=== PATIENT | female | born 1990 | race Caucasian/White ===

== ENCOUNTER 2022-12-07 14:00 | Outpatient (REF) | payer OTHER, SELFPAY ==
[2022-12-07 15:22] LABS: Alanine Aminotransferase 32 U/L (0-31); Albumin Level 4.5 g/dL (3.5-5.0); Alkaline Phosphatase 65 U/L (39-117); Anion Gap 11 (12-20); Aspartate Amino Transferase 24 U/L (5-31); Bilirubin Total 0.2 mg/dL (0.0-1.0); Blood Urea Nitrogen 10 mg/dL (9-16); Calcium 9.2 mg/dL (8.4-10.2); Carbon Dioxide 26 mmol/L (22-29); Chloride 107 mmol/L (96-108); Estimated Glomerular Filt Rate > 60; Free T4 (Free Thyroxine) 0.87 ng/dL (0.71-1.85); Glucose Random 84 mg/dL (60-115); Potassium 4.1 mmol/L (3.3-5.1); Sodium 140 mmol/L (135-145); Thyroid Stimulating Hormone 0.89 uIU/mL (0.32-4.0); Total Protein 7.8 g/dL (6.5-8.0); Vitamin D 25-OH Total 27.2 ng/mL (>30)
== END 2022-12-07 14:01 | disposition home or self-care (01) ==
LOC: HO.LAB 14:00
PROVIDERS: PCP Nurse Practitioner Family; Visit Provider Nurse Practitioner Psychiatric/Mental Health
DX: F53.0 Postpartum depression (principal)
CPT/HCPCS: 36415; 80053; 82306; 84439; 84443

== ENCOUNTER 2022-12-22 08:45 | Outpatient (RCR) | payer OTHER, SELFPAY ==
[2022-12-06 11:43] VITALS: TEMP 36.9
--- NOTE | 2022-12-06 11:46 | HO.PS.ADMBH ---
HPI Date of Service: 12/06/22 Chief Complaint: depression, Sources of Information: patient interviewed, chart reviewed and crisis/core team assessment reviewed HPI Medical Problems Affecting Mental Status: No Narrative: Ms. Mcmahon is a 32 yo female, referred to [facility] by [facility] crisis, due to increased symptoms of depression, with passive SI. That she was in crisis last Sunday, and contacted [facility]. Their recommendation was a partial program. Patient has 4 children, youngest 1-1/2 years old. Oldest daughter is a step daughter. She explains that after the each child, she had ?some baby blues at 1st?, but after each it progressed in severity. States she has been experiencing depression since of last child 1 and half years ago. States symptoms of gotten worse past several months. Believes a precipitant is the of her grandmother about a month ago. Describes current symptoms as the inability to get out of bed, poor attention to ADLs/IADLs, missing work, feeling hopeless and helpless, anhedonia, poor sleep, decreased energy, decreased motivation, decreased appetite, passive SI with no plan or intent. States ?sometimes I think my family would be better off without me ?. She has never acted on any plan to harm herself or others, and reports that she feels safe. She has a supportive , family, and support network. She reports she has experienced anxiety for years, since she was a child. She began therapy in 2016 after the of 1 of her children. She was placed on medication a couple years ago, started sertraline. , reports that it made her feel numb, suicidal, and stopped taking it. During this most recent episode she was started with escitalopram 10 mg, prescribed by her primary care provider. About 1 1/2 months ago the dose was increased to 20 mg. She reports that she does not feel any difference, continues with depressed mood, anxiety. Patient it is father has bipolar 1 disorder, and has had manic episodes. Patient reports that her paternal grandmother may have also had bipolar, untreated. She states she has never experienced a full manic episode, however at times she has had some symptoms of feeling energetic, hyperfocused, like cleaning her house intensively, having more energy for several days, followed by a period of depression. Reports this has never really been a problem, and she has never been diagnosed with bipolar. She reports that currently she feels her depression is her main concern, but she also feels she has an underlying anxiety, since she was young, that is not being treated. She states that she feels ?sad all the time, worthless ?. She has recently taken time off from work, due to increased depression. She had already taken of less demanding position due to symptoms in the past. She has also taken time off to participate in this program. She is interested in medication evaluation, suggestions. Past Psychiatric History: Therapy off and on since 2016. Med trials: Sertraline (numbing, SI). No IP, no PHP No psychiatry provider Therapist Cindy Delvalle [facility] (new) Medical Evaluation Reviewed: Yes [facility] Medical History (Updated 12/07/22 @ 18:57 by Kay Valverde) delivery delivered History of anemia History of kidney stones Family History: Father: Bipolar disorder Paternal grandmother: Suspect bipolar disorder, untreated. Maternal side of family: Anxiety. Patient's son recently diagnosed with anxiety. Social History: Morning raised by both parents, they when she was in high school. No siblings. 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 , 18-year-old stepdaughter, 3 biological children ages 7, 4 and 1-1/2. She is in couples therapy with her at this time. Currently on leave from work. Substance History: none Trauma History: none reported Meds/Allergies Meds Home Medications Medication Instructions Recorded Confirmed Type escitalopram oxalate 20 mg tablet 20 mg PO DAILY 12/06/22 12/06/22 History melatonin 3 mg tablet 6 mg PO BEDTIME 12/06/22 12/06/22 History Allergies Allergies Allergy/AdvReac Type Severity Reaction Status Date / Time sulfamethoxazole Allergy Hives Verified 10/24/22 14:48 [From Bactrim] trimethoprim [From Bactrim] Allergy Hives Verified 10/24/22 14:48 Mental Status Exam Mental Status Exam Narrative: Well-developed, well-nourished female, in NAD. Normal ambulation. Appropriately dressed. Fully attentive during interview. Patient Appearance: Well Grooomed and Appropriate Patient Orientation: Person, Place, Time and Situation Level of Consciousness: Appropriate and Alert Patient Behavior: Appropriate, Cooperative and Good Eye Contact Mood Description: Depressed and Anxious Affect Description: Depressed and Anxious Patient Cognition Impaired: No Ability to Follow Directions: Excellent Speech Pattern: Clear and Appropriate Memory Description: Intact Hallucinations: None Delusions: Not Present Thought Process: Intact Thought Content: positive for Intact and positive for Suicidal Ideation (passive, no intent/plan) Depressive Symptoms: Increased Anxiety, Difficulty Sleeping, Changes in Appetite, Crying Spells, Loss of Int. in Activity, Feelings of Worthlessness, Hopelessness, Increased Fatigue, Thoughts of /Suicide (thoughts that family would be better off without her) and Loss of Energy Judgement: Fair Assessment & Plan Assessment & Plan (1) depression: Status: Acute Code(s): F53.0 - depression Assessment and Plan: Patient describes long history of anxiety since childhood, periods of depression after of children. Began treatment 6 years ago. Has been prescribed SSRIs, with little effect regarding management of symptoms. In therapy currently. Struggling with increased depression symptoms including feeling hopeless and helpless, anhedonia, poor sleep, decreased energy, poor attention to ADLs/IADLs, difficulty getting out of bed and, passive SI. She describes her SI as passive, with no intent or plan to harm herself or others in any way. She states that she does feel safe. Denies any episodes of landen or hypomania in her past, although there is a family history of bipolar disorder. She has had several past instances of having increased energy, goal-directed activity for several days at a time. Mood disorder questionnaire (MDQ) administered. Patient answered yes to 7 questions in Part 1, yes to part 2. However, in part 3 she described as a minor problem rather than a moderate or serious concern. This will warrant further assessment during subsequent encounters while she is in program. We did discuss differences between bipolar 1 and bipolar 2 disorder. Also discussed various mood stabilizers. Patient feels at this time that her issue is mostly depression, with an underlying anxiety. She states the Lexapro is ineffective in treating her symptoms. Would like to trial another medication. We discussed her response with several SSRIs, and suggestion of trialing an SN RI at this time. Duloxetine being was discussed in detail, including risks and benefits, side effects both small and more serious, not indications of use. Discussed of taper down with Lexapro, wall initiating titration duloxetine in over the next week. She was in agreement with this. (2) Generalized anxiety disorder: Status: Acute Code(s): F41.1 - Generalized anxiety disorder Assessment and Plan: DAVID-7 anxiety screening tool administered. Patient had score of 14, which indicates moderate anxiety. Patient is hoping to gain coping skills in [facility] to be able to cope with episodes of anxiety. Plan 1. Continue with current [facility] plan of care. 2. Take escitalopram 10 mg x 5 days, then escitalopram 5 mg x 5 days, then discontinue. 3. Start duloxetine 20 mg daily. 4. Follow-up as per protocol. 5. Labs ordered. Patient educated on: diagnosis, medication risk/benefits and therapeutic strategies Informed Consent: understands Reason for continued partial hosp. stay Substantial Risk for: harm to self, inability to function and rapid decompensation Certification I certify that partial hospital treatment is medically necessary due to the symptoms and problems resulting from the patient's mental illness and the failure to treat the patient at the partial hospital level of care would likely result in the patient requiring inpatient psychiatric care which could not be prevented at a less intensive level of care. Time Spent With Patient Time: Total time managing care of this patient today __60__ minutes.
--- NOTE | 2022-12-06 12:20 | PC.ADMIT ---
Patient is a 32 year old female who was referred to [facility] by crisis d/t increased depression sxs with passive SI (denied plan or intent). Patient reports sxs of post depression after her other 2 children were born however after her last child was born 1.5 years ago she reports increased feelings of depression. She stated it started over this last summer and increased a few weeks ago to the point where she could not get out of bed and was unable to go into work. She is currently taking a leave of absence from work to work on her mental health. See Integrative Assessment for more information. Patient is alert and oriented x4. calm and cooperative. Presented with depressed mood and affect. Reports passive SI, denied plan or intent. Reviewed patient's safely plan with her and gave her a copy of it if needed. Medications reconciled with patient and patient's pharmacy.
--- NOTE | 2022-12-08 08:44 | HO.PHP ---
The clients case was reviewed and opened in treatment team
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
--- NOTE | 2022-12-13 09:57 | P.PNPSP_ITS ---
Subjective Subjective Date of Service: 12/13/22 Reason For Visit: depression, Medical Problems Affecting Mental Status: No Interim History: Continues with depressed mood/affect. Tearful. States yesterday was a bad day , difficult to get out of bed and attend to ADL's, IADL's. Some passive SI, no intent or plan to harm self or others in any way. Feels safe. Asking for medication dose increase. Medication Compliance: Yes Side effects from medications: No Attending Groups: Yes Review of Systems Acute medical concerns: No Medical Review of Systems: unchanged Review of Systems Review of Systems Yes all other systems are reviewed and are negative Constitutional: Reports no additional constitutional complaints Mental Status Exam Mental Status Exam Narrative: NAD. Tearful. Passive SI. No HI, no AH,VH. Denies any intrusive thoughts. No perceptual disturbances noted. Patient Appearance: Appropriate Patient Orientation: Person, Place, Time and Situation Level of Consciousness: Appropriate and Alert Patient Behavior: Appropriate, Cooperative and Good Eye Contact Mood Description: Depressed Affect Description: Depressed and Anxious Patient Cognition Impaired: No Ability to Follow Directions: Excellent Speech Pattern: Clear and Appropriate Memory Description: Intact Hallucinations: None Delusions: Not Present Thought Process: Intact Thought Content: positive for Intact and positive for Suicidal Ideation (passive, no intent/plan) Depressive Symptoms: Increased Anxiety, Difficulty Sleeping, Changes in Appetite, Crying Spells, Loss of Int. in Activity, Feelings of Worthlessness, Hopelessness, Increased Fatigue, Thoughts of /Suicide (thoughts that family would be better off without her) and Loss of Energy Judgement: Fair Assessment & Plan Assessment & Plan (1) depression: Status: Acute Code(s): F53.0 - depression Assessment and Plan: Continues with depressed mood/affect. Tearful. States she does not feel any better. Continues taper down off lexapro. Discussed increasing duloxetine dose. States yesterday was a bad day , difficult to get out of bed and attend to ADL's, IADL's. Some passive SI, no intent or plan to harm self or others in any way. Feels safe. Discussed adding lamotrigine. Medication reviewed, including indications as a mood stabilizer (sig family history bipolar), as well as adjunctive for depression, side effects both small and more serious, alternatives to treatment. she is willing to try med at this time. (2) Generalized anxiety disorder: Status: Acute Code(s): F41.1 - Generalized anxiety disorder Plan 1. Continue with current [facility] plan of care. 2. Increase duloxetine to 40mg daily. 3. Continue taper off escitalopram, currently taking 5mg daily for several more days. 4. Start lamotrigine 25mg X 14 days, then take lamotrigine 50mg daily X 14 days. 5. Follow-up as per protocol. Patient educated on: diagnosis, medication risk/benefits and therapeutic strategies Informed Consent: understands Reason for contiued partial hosp. stay Substantial Risk for: harm to self, inability to function and rapid decompensation Certification I certify that partial hospital treatment is medically necessary due to the symptoms and problems resulting from the patient's mental illness and the failure to treat the patient at the partial hospital level of care would likely result in the patient requiring inpatient psychiatric care which could not be prevented at a less intensive level of care. Total time managing care of this patient today __20__ minutes. Discharge Plan Discharge Attending provider: Mack Loaiza Medications: New escitalopram oxalate 5 mg tablet 5 mg PO DAILY Qty: 5 0RF duloxetine 40 mg capsule,delayed release(DR/EC) 40 mg PO DAILY Qty: 7 0RF lamotrigine 25 mg tablet See Rx Instructions .ROUTE .COMPLEX 14 Days Qty: 42 0RF Rx Instructions: Take 25 mg (1 tab)orally for 14 days, THEN take 50mg (2 tabs) for 14 days. No Action melatonin 3 mg Tablet 6 mg PO BEDTIME escitalopram oxalate 20 mg tablet 20 mg PO DAILY Stand Alone Forms: Patient Portal Discharge page Patient Education: Lamotrigine (By mouth), Duloxetine (By mouth)
--- NOTE | 2022-12-18 15:19 | HO.PHPPROGNO ---
Subjective Subjective Date of Service: 12/18/22 Reason For Visit: depression, Medical Problems Affecting Mental Status: No Interim History: Mood continues depressed, but some improvement. Continues with anxiety, with some improvement. No SI, feels safe. Has questions regarding meds and side effects. Medication Compliance: Yes Side effects from medications: Yes (PERSON for several days, now resolved. Sweating at night) Attending Groups: Yes Review of Systems Acute medical concerns: No Medical Review of Systems: unchanged Review of Systems Review of Systems Yes all other systems are reviewed and are negative Constitutional: Reports no additional constitutional complaints Mental Status Exam Mental Status Exam Narrative: NAD. No SI, feels safe. Patient Appearance: Appropriate Patient Orientation: Person, Place, Time and Situation Level of Consciousness: Appropriate and Alert Patient Behavior: Appropriate, Cooperative and Good Eye Contact Mood Description: Depressed and Anxious Affect Description: Depressed and Anxious Patient Cognition Impaired: No Ability to Follow Directions: Excellent Speech Pattern: Clear and Appropriate Memory Description: Intact Hallucinations: None Delusions: Not Present Thought Process: Intact Thought Content: positive for Intact Depressive Symptoms: Increased Anxiety, Changes in Appetite, Crying Spells and Loss of Int. in Activity Judgement: Fair Assessment & Plan Assessment & Plan (1) depression: Status: Acute Code(s): F53.0 - depression Assessment and Plan: Continues with some depression and anxiety, although improving. No SI, feels safe. Has been experiencing sweating at night, wondering if related to increased duloxetine dose, or stopping the lexapro after taper. Also had headache for several days, but has subsided yesteday. Has completed taper down off lexapro several days ago. Reviewed medications in detail, including side effects both common and more serious. Discussed changing duloxtine from 40mg once daily to 20mg bid. She was agreeable to try this. No rash, PERSON has resolved. Finding PHP helpful. (2) Generalized anxiety disorder: Status: Acute Code(s): F41.1 - Generalized anxiety disorder Plan 1. Continue with lamotrigine titration. 2. Change duloxetine to 20mg BID 3. Follow-up as per protocol. Patient educated on: diagnosis, medication risk/benefits and therapeutic strategies Reason for contiued partial hosp. stay Substantial Risk for: inability to function and rapid decompensation Certification I certify that partial hospital treatment is medically necessary due to the symptoms and problems resulting from the patient's mental illness and the failure to treat the patient at the partial hospital level of care would likely result in the patient requiring inpatient psychiatric care which could not be prevented at a less intensive level of care. Total time managing care of this patient today ___20_ minutes. Discharge Plan Discharge Attending provider: Mack Loaiza Medications: New escitalopram oxalate 5 mg tablet 5 mg PO DAILY Qty: 5 0RF lamotrigine 25 mg tablet See Rx Instructions .ROUTE .COMPLEX 14 Days Qty: 42 0RF Rx Instructions: Take 25 mg (1 tab)orally for 14 days, THEN take 50mg (2 tabs) for 14 days. duloxetine 20 mg capsule,delayed release(DR/EC) 20 mg PO BID Qty: 60 0RF lamotrigine 100 mg tablet 100 mg PO DAILY Qty: 30 0RF Rx Instructions: AFTER completion of lamotrigine 50mg daily, START taking lamotrigine 100mg daily. Discontinued escitalopram oxalate 20 mg tablet 20 mg PO DAILY No Action melatonin 3 mg Tablet 6 mg PO BEDTIME Stand Alone Forms: Patient Portal Discharge page Patient Education: Lamotrigine (By mouth), Duloxetine (By mouth)
--- NOTE | 2022-12-22 10:13 | HO.PHPPROGNO ---
Subjective Subjective Date of Service: 12/22/22 Reason For Visit: depression, Medical Problems Affecting Mental Status: No Interim History: Describes mood as ?great ?. Feels anxiety and depression symptoms have decreased tremendously. No SI, feels safe. Feels current medication regimen is working well. Feels stable for discharge from [facility] at this time. Plans to return to work next week. Medication Compliance: Yes Side effects from medications: No Attending Groups: Yes Review of Systems Acute medical concerns: No Medical Review of Systems: unchanged Review of Systems Review of Systems Yes all other systems are reviewed and are negative Constitutional: Reports no additional constitutional complaints Mental Status Exam Mental Status Exam Narrative: NAD. No SI, feels safe. Patient Appearance: Appropriate Patient Orientation: Person, Place, Time and Situation Level of Consciousness: Appropriate and Alert Patient Behavior: Appropriate, Cooperative and Good Eye Contact Mood Description: Calm and Appropriate Affect Description: Appropriate Patient Cognition Impaired: No Ability to Follow Directions: Excellent Speech Pattern: Clear and Appropriate Memory Description: Intact Hallucinations: None Delusions: Not Present Thought Process: Intact Thought Content: positive for Intact Judgement: Good Assessment & Plan Assessment & Plan (1) depression: Status: Acute Code(s): F53.0 - depression Assessment and Plan: Describes mood as ?great ?. Feels anxiety and depression symptoms have decreased tremendously. Able to handle stressors more easily, says I'm not getting as upset as I would before . Says finding more demetrius in daily life than previously. No SI, no HI, no safety concerns. Feels current medication regimen is working well. Reviewed current medications with patient, including doses, schedule, etc. Feels stable for discharge from [facility] at this time. Plans to return to work next week. (2) Generalized anxiety disorder: Status: Acute Code(s): F41.1 - Generalized anxiety disorder Plan 1. Patient appears stable for discharge from [facility] at this time. 2. Patient to follow-up with outpatient providers going forward. Patient educated on: diagnosis, medication risk/benefits and therapeutic strategies Informed Consent: understands Reason for contiued partial hosp. stay Substantial Risk for: stable for discharge Certification I certify that partial hospital treatment is medically necessary due to the symptoms and problems resulting from the patient's mental illness and the failure to treat the patient at the partial hospital level of care would likely result in the patient requiring inpatient psychiatric care which could not be prevented at a less intensive level of care. Total time managing care of this patient today __17__ minutes. Discharge Plan Discharge Attending provider: Mack Loaiza Medications: New escitalopram oxalate 5 mg tablet 5 mg PO DAILY Qty: 5 0RF lamotrigine 25 mg tablet See Rx Instructions .ROUTE .COMPLEX 14 Days Qty: 42 0RF Rx Instructions: Take 25 mg (1 tab)orally for 14 days, THEN take 50mg (2 tabs) for 14 days. duloxetine 20 mg capsule,delayed release(DR/EC) 20 mg PO BID Qty: 60 0RF lamotrigine 100 mg tablet 100 mg PO DAILY Qty: 30 0RF Rx Instructions: AFTER completion of lamotrigine 50mg daily, START taking lamotrigine 100mg daily. Discontinued escitalopram oxalate 20 mg tablet 20 mg PO DAILY No Action melatonin 3 mg Tablet 6 mg PO BEDTIME Stand Alone Forms: Patient Portal Discharge page Patient Education: Lamotrigine (By mouth), Duloxetine (By mouth), Depression (DC), Generalized Anxiety Disorder (GEN)
--- NOTE | 2022-12-29 10:57 | HO.PHP ---
Left a discharge voice mail with the clients therapist Cindy RICCI
== END 2022-12-22 23:59 | disposition home or self-care (01) ==
LOC: HO.PHPA 08:45
PROVIDERS: Visit Provider Psychiatry & Neurology Psychiatry
DX: F53.0 Postpartum depression (principal); F41.1 Generalized anxiety disorder
CPT/HCPCS: 90791; 90853